=== PATIENT | male | born 1985 | race Caucasian/White ===

== ENCOUNTER 2024-10-05 18:26 | Emergency (ER) | payer SELFPAY ==
--- NOTE | ~2024-10-05 | XR_ITS ---
EXAMINATION: XR ankle RT min 3V DATE: 10/05/2024 18:54 INDICATION: Lateral right ankle pain. Fall. TECHNIQUE: 3 views of right ankle were obtained. COMPARISON: None. FINDINGS: Alignment is normal. No fracture. Joint spaces are normal. There is ankle soft tissue swell ing. IMPRESSION: 1. No fracture. Reviewed, dictated and finalized at location A. [facility] IMPRESSION: 1. No fracture.
[2024-10-05 18:29] VITALS: BP 134/91; PULSE 98; RESP 18; TEMP 36.2; O2SAT 98
[2024-10-05 21:22] VITALS: BP 143/96; PULSE 74; RESP 18; TEMP 36.6; O2SAT 98
[2024-10-05 23:23] VITALS: BP 120/84; PULSE 77; RESP 20; TEMP 36.9; O2SAT 98
[2024-10-06] MEDS: KETOROLAC 30 MG/ML VIAL (*BKC) IM (00:35)
--- NOTE | 2024-10-06 00:39 | ED_ITS ---
HPI - Extremity Injury (Lower) General Chief Complaint: Extremity Injury, Lower Stated Complaint: ankle injury Time Seen by Provider: 10/05/24 23:40 History of Present Illness HPI Narrative: 39-year-old otherwise healthy male presenting to the emergency room with chief complaint of right ankle pain and swelling. Patient states he was running outside and twisted and fell on it last night. Denies any injuries to his head or losing consciousness. He had significant swelling woke up this morning and difficulty ambulating so he used some crutches that he had left over at home. Denies any other injuries, was otherwise in his normal state of health tried [id number] pain medications and ice with some improvement symptoms. Related Data Allergies Allergy/AdvReac Type Severity Reaction Status Date / Time No Known Allergies Allergy Verified 10/06/24 00:34 Review of Systems Review of Systems: As reviewed above in HPI Exam Narrative: GENERAL: [Well-appearing, well-nourished, and in no acute distress.] HEAD: [Normocephalic, atraumatic.] EYES: [PERRLA and EOMI.] ENT: Nares clear, no rhinorrhea or epistaxis. Mucous membranes moist. NECK: Supple. CHEST: [Clear to auscultation. No respiratory distress.] HEART: [Regular rate and rhythm]. No murmur heard. [Normal peripheral pulses.] ABDOMEN: [Soft, nondistended], [nontender], [No rigidity or guarding] EXTREMITIES: Right ankle with some swelling and tenderness to palpation but able to flex extend, plantar and dorsiflex, full strength and sensation throughout both arms and legs. Able to hold intact extensor mechanism of the right leg. No overlying skin deformity or obvious contusions. SKIN: Warm, dry, no rash. NEURO: [No focal deficits]. Alert and oriented [x3.] PSYCH: [Normal mood and affect.] Course Vital Signs Vital signs: Vital Signs Temperature 36.2 C L 10/05/24 18:29 Pulse Rate 98 10/05/24 18:29 Respiratory Rate 18 10/05/24 18:29 Blood Pressure 134/91 H 10/05/24 18:29 Pulse Oximetry 98 10/05/24 18:29 Temperature 36.9 C 10/05/24 23:23 Pulse Rate 77 10/05/24 23:23 Respiratory Rate 20 10/05/24 23:23 Blood Pressure 120/84 10/05/24 23:23 Pulse Oximetry 98 10/05/24 23:23 MDM - Extremity Injury (Lower) MDM Narrative Medical decision making narrative: 39-year-old male presenting for a rolled ankle. He states that last night he was running outside any actually twisted ankle fell on it. Did not his head or lose consciousness. Was otherwise in his normal state of health. He does have some ankle swelling especially on the lateral aspect of his right ankle but he has full range of motion and able to plantar and dorsiflex. States it hurts to bear weight on it. Took some [id number] medications with some improvement in symptoms. Overall suspicion is low for ankle fracture however ankle sprain her ankle strain is likely. Will assess with x-rays and here he has crutches for ambulation assistance. We will provide Victor Manuel wrap and encouraged him for rest, ice, compression and [id number] therapies for pain control. Patient verbalized understanding of the need for close follow-up after x-rays showed no acute fracture. Medical Records Attestation: I reviewed the patient's medical records. Imaging Data Attestation: I personally reviewed and interpreted this imaging study as follows: Discharge Plan Discharge Clinical Impression: Ankle sprain and strain Patient Disposition: Home, Self-Care Condition: Stable Instructions: Antibiotic Form, Ankle Sprain (DC) Additional Instructions: Compression, elevation, rest and ice for pain as well as Tylenol and ibuprofen around the clock. Ambulation assistance with crutches and follow-up with her regular doctor on outpatient basis. Patient Language: [place] Prescriptions: New ibuprofen 800 mg tablet 800 mg PO TID PRN (Reason: pain) Qty: 30 0RF acetaminophen [Tylenol Extra Strength] 500 mg tablet 1,000 mg PO Q6H PRN (Reason: pain) Qty: 30 0RF lidocaine 5 % adhesive patch,medicated 1 patch topical DAILY Qty: 15 0RF Rx Instructions: leave on most painful area for up to 12 hrs Follow-up/Referrals: PHYSICIAN NOT ON STAFF,NONSTAFF [Primary Care Provider] - Time of Disposition: 00:08
== END 2024-10-06 01:13 | disposition home or self-care (01) ==
PROVIDERS: Emergency Provider Student in an Organized Health Care Education/Training Program
DX: S93.401A Sprain of unspecified ligament of right ankle, initial encounter (principal); X50.1XXA Overexertion from prolonged static or awkward postures, initial encounter
CPT/HCPCS: 73610; 99283; J1885